=== PATIENT | female | born 1940 | race Hispanic/Latino ===

== ENCOUNTER → 2017-07-07 | Outpatient (CLI) | payer OTHER ==
[~2017-07-07] MED LIST: ALEN70TA47 PO; AMLO2.5T PO; ASPI-1005 PO; CELE100C PO; FURO40TA5 PO; LOSA50TA37 PO; POTA10CA44 PO; PRAV10TA39 PO; SENN1TAB PO
== END | disposition home or self-care (01) ==
LOC: SHCH 13:56
PROVIDERS: ATTEND Internal Medicine Cardiovascular Disease
DX: I87.2 Venous insufficiency (chronic) (peripheral) (principal)
CPT/HCPCS: 93970

== ENCOUNTER → 2019-02-17 | Outpatient (CLI) | payer OTHER ==
[~2019-02-17] MED LIST changes: +ALEN70TA10 PO; -ALEN70TA47 PO; -AMLO2.5T PO; +AMLO2.5T4 PO; -LOSA50TA37 PO; +LOSA50TA64 PO
== END | disposition home or self-care (01) ==
LOC: SHCH 10:07
PROVIDERS: ATTEND Internal Medicine Cardiovascular Disease
DX: I87.2 Venous insufficiency (chronic) (peripheral) (principal)
CPT/HCPCS: 93970